=== PATIENT | female | born 1980 | race Two or more races ===

== ENCOUNTER 2019-07-02 06:44 | Emergency (ER) | payer OTHER ==
[2019-07-02] MEDS ORDERED: METHYLPREDNISOLONE INJ 125 MG/2 ML SDV IV ONE (07:43)
[2019-07-02] MEDS ORDERED: DIPHENHYDRAMINE HCL 50 MG/ML VIAL IV ONE (07:43)
[2019-07-02] MEDS ORDERED: FAMOTIDINE INJ/PF 20 MG/2 ML SDV IV ONE (07:44)
[2019-07-02 11:31] VITALS: BP 100/59
--- NOTE | 2019-07-05 08:23 | ER Document Report ---
Entered by SANDEEP ZHOU SCRIBE 07/02/19 0745 Acting as scribe for:CR RAMSEY IV, MD ED Allergic Reaction - General Chief Complaint: Allergic Reaction Stated Complaint: ALLERGIC REACTION Time Seen by Provider: 07/02/19 07:31 Primary Care Provider: SOULEYMANE MAE [NO LOCAL MD] - Follow up as needed Mode of Arrival: Ambulatory Information source: Patient Notes: This 39 year old female patient presents to the emergency department today with complaints of an allergic reaction to diflucan. Patient states that she has recently been on antibiotics and then began getting a yeast infection so her doctor started her on the diflucan. Patient reports that she is allergic to monistat as well. Patient states she woke up today with lip swelling and vaginal swelling. Airway is patent and she denies any shortness of breath. Patient states that she took benadryl this morning at 0430 without much change. TRAVEL OUTSIDE OF THE [place] IN LAST 30 DAYS: No - Related Data Allergies/Adverse Reactions: fluconazole [From Diflucan] Allergy (Verified 07/02/19 07:20) miconazole [From Monistat 3] Allergy (Verified 07/02/19 07:20) skin cleanser combination no.17 [From Monistat 3] Allergy (Verified 07/02/19 07:20) Home Medications: clindamycin Past Medical History - General Information source: Patient - Social History Smoking Status: Never Smoker Cigarette use (# per day): No Frequency of alcohol use: None Drug Abuse: None Lives with: Family Family History: Reviewed & Not Pertinent Patient has suicidal ideation: No Patient has homicidal ideation: No Review of Systems - Review of Systems Constitutional: No symptoms reported EENT: See HPI, Other - hurts to swallow. lip swelling. Cardiovascular: No symptoms reported Respiratory: denies: Short of breath Gastrointestinal: No symptoms reported Genitourinary: No symptoms reported Female Genitourinary: See HPI, Other Musculoskeletal: No symptoms reported Skin: No symptoms reported Hematologic/Lymphatic: No symptoms reported Neurological/Psychological: No symptoms reported -: Yes All other systems reviewed and negative Physical Exam - Vital signs Vitals: Temp Pulse Resp BP Pulse Ox 98.4 F 72 16 115/59 L 99 07/02/19 06:55 07/02/19 06:55 07/02/19 06:55 07/02/19 06:55 07/02/19 06:55 - General General appearance: Appears well, Alert In distress: None - HEENT Head: Normocephalic, Atraumatic Eyes: Normal Conjunctiva: Normal Notes: Mild lip swelling. No posterior oropharynx edema, airway is patent. - Respiratory Respiratory status: No respiratory distress Chest status: Nontender Breath sounds: Normal - Cardiovascular Rhythm: Regular Heart sounds: Normal auscultation Murmur: No - Abdominal Inspection: Normal Distension: No distension Bowel sounds: Normal - Genitourinary External exam: Other - deferred - Extremities General upper extremity: Normal inspection. No: Edema General lower extremity: Normal inspection. No: Edema - Neurological Neuro grossly intact: Yes Cognition: Normal Orientation: AAOx4 - Psychological Associated symptoms: Normal affect, Normal mood - Skin Skin Temperature: Warm Skin Moisture: Dry Skin Color: Normal Course - Re-evaluation Re-evalutation: 07/02/19 10:32 Patient is awake sitting up in bed, no acute distress. Patient denies difficulty breathing. Emergency signs and symptoms, reasons to return to the emergency department discussed with patient. All questions were answered prior to discharge. - Vital Signs Vital signs: Temp Pulse Resp BP Pulse Ox 98.4 F 72 16 115/59 L 99 07/02/19 06:55 07/02/19 06:55 07/02/19 06:55 07/02/19 06:55 07/02/19 06:55 Discharge - Discharge Clinical Impression: Allergic reaction caused by a drug Qualifiers: Encounter type: initial encounter Qualified Code(s): T78.40XA - Allergy, u nspecified, initial encounter Condition: Good Disposition: HOME, SELF-CARE Additional Instructions: Return to the Emergency Department without delay if any worse. Acute Allergic Reaction to Drugs Your symptoms are due to an allergic reaction. The physician feels that a medication you've taken is responsible. Medication allergy can cause hives, swelling of the hands, feet and face, hoarseness, and difficulty swallowing or breathing. This type of allergy can also be caused by animal dander, foods, infection, or insect bites. Medication can cause allergy even when prior use of this same medication caused no problems. Emergency treatment may include adrenalin and antihistamines. Home treatment includes the following: (1) Stop the suspected medication. (2) Oral antihistamines for the next four to five days (Benadryl, Atarax). (3) Avoid aspirin until the hives completely disappear. (4) Avoid hot baths or showers until the hives are completely gone. Call the doctor if faintness, difficulty swallowing, tightness in the chest or wheezing occurs. HOME CARE INSTRUCTIONS & INFORMATION: Thank you for choosing us for your medical needs. We hope you're satisfied with the care you received. After you leave, you must properly care for your problem and, at the same time, observe its progress. Any condition can change. Some illnesses can change rapidly over hours or days. If your condition worsens, return to the Emergency Department or see your physician promptly. ABOUT YOUR X-RAYS AND EKG'S: If you had an EKG or X-rays taken, they have been read by the Emergency Physician. The X-rays and EKG's will also be read by a Radiologist or Senior Architectural Designer within 24 hours. If discrepancies are noted, you will be notified by telephone. Please be certain the ED has a correct telephone number & address where you can be reached. Also, realize that some fractures or abnormalities do not show up on initial X-rays. If your symptoms continue, see your physician. ABOUT YOUR LABORATORY TEST: If you had laboratory tests, the results have been reviewed by the Emergency Physician. Some test results (for example cultures) may not be available for several days. You will be contacted if any test result shows you need additional treatment. Please be certain the ED has a correct telephone number and address where you can be reached. ABOUT YOUR MEDICATIONS: You will receive instructions on how to take your medicine on the prescription label you receive. Additional information may be provided by the Pharmacy. If you have questions afterwards, call the ED for clarification or further instructions. Some prescribed medications may cause drowsiness. Do not perform tasks such as driving a car or operating machinery without consulting your Pharmacist. If you feel you need a refill of pain medication, your condition will need re-evaluation. Please do not call for a refill of any medication. ABOUT YOUR SIGNATURE: Signature of this document acknowledges to followin. Understanding that you received emergency treatment and that you may be r eleased before al medical problems are known or treated. Please be certain the ED has a correct phone number & address where you can be reached. 2. Acknowledgement that you will arrange for follow-up care as recommended. 3. Authorization for the Emergency Physician to provide information to your follow-up Physician in order to maximize your care. AT ANY TIME, IF YOUR SYMPTOMS CHANGE SIGNIFICANTLY OR WORSEN OR YOU DEVELOP NEW SYMPTOMS, RETURN TO THE EMERGENCY DEPARTMENT IMMEDIATELY FOR RE-EVALUATION. OUR GOAL IS TO PROVIDE EXCELLENT MEDICAL CARE! WE HOPE THAT WE HAVE MET YOUR EXPECTATIONS DURING YOUR EMERGENCY DEPARTMENT VISIT AND THAT YOU FEEL YOU HAVE RECEIVED EXCELLENT CARE! Referrals: TU,SOULEYMANE [NO LOCAL MD] - Follow up as needed KAITLYNN MEJIAS MD [HONORARY] - Follow up as needed I personally performed the services described in the documentation, reviewed and edited the documentation which was dictated to the scribe in my presence, and it accurately records my words and actions.
== END 2019-07-02 11:15 | disposition home or self-care (01) ==
LOC: ER 06:44
DX: T78.40XA Allergy, unspecified, initial encounter (principal); R13.10 Dysphagia, unspecified; R22.0 Localized swelling, mass and lump, head; X58.XXXA Exposure to other specified factors, initial encounter
CPT/HCPCS: 99283; 96374; 96375; J1200; J2930; S0028